=== PATIENT | female | born 1960 | race Caucasian/White ===

== ENCOUNTER 2023-02-01 17:54 | Emergency (ER) | payer OTHER ==
[~2023-02-01] VITALS: Ht 152.4 cm; Wt 106.6 kg
[2023-02-01 18:07] VITALS: BP 130/70
[2023-02-01 18:22] LABS: BASOPHILS # (AUTO) 0.1 K/uL (0.00-0.22); BASOPHILS % (AUTO) 0.5 % (0.0-2.0); EOSINOPHILS # (AUTO) 0.2 K/uL (0-0.4); EOSINOPHILS % (AUTO) 1.3 % (0.0-4.0); HEMATOCRIT 43.4 % (36-48); HEMOGLOBIN 14.7 g/dL (12.0-16.0); LYMPHOCYTES # (AUTO) 5.9 K/uL (2.5-16.5); LYMPHOCYTES % (AUTO) 36.7 % (20.5-51.1); MEAN CORPUSCULAR HEMOGLOBIN 30 pg (27-31); MEAN CORPUSCULAR HGB CONC 34 g/dL (33-37); MEAN CORPUSCULAR VOLUME 89.5 fL (80-94); MONOCYTES # (AUTO) 0.7 K/uL (0.8-1.0); MONOCYTES % (AUTO) 4.2 % (1.7-9.3); NEUTROPHILS # (AUTO) 9.2 K/uL (1.8-7.7); NEUTROPHILS % (AUTO) 57.3 % (42.2-75.2); PLATELET COUNT (AUTO) 329 K/uL (140-450); RED BLOOD CELL COUNT(AUTO) 4.84 MIL/uL (4.20-5.40)
[2023-02-01 18:38] LABS: ALBUMIN 3.8 g/dL (3.4-5.0); ANION GAP 10.9 (8-16); ASPARTATE AMINOTRANSFERASE 25 U/L (15-37); CARBON DIOXIDE 32.3 mmol/L (21-32); CHLORIDE 100 mmol/L (98-107); CREATININE 1.1 mg/dL (0.6-1.3); GFR ARICAN-AMERICAN 65 mL/min (>90); GLUCOSE 122 mg/dL (74-106); POTASSIUM 3.2 mmol/L (3.5-5.1); SODIUM SERUM 140 mmol/L (136-145); TOTAL BILIRUBIN 0.4 mg/dL (0.0-1.0); UREA NITROGEN, BLOOD 13 mg/dL (7-18)
--- NOTE | 2023-02-01 19:03 | NUR ---
FIRST CONTACT. RECIEVED FROM JULIANE HIDALGO. PT STATES SHE TWISTED HER ANKLE THIS AM WHILE GETTING IN HER CAR. SHE CONTINUED TO HAVE SOME DIFFICULTY GETTING IN AND OUT OF HER CAR TODAY DUE TO FEAR OF "RETWISTING HER RT ANKLE, THIGH AND ENTIRE LEG. SHE WENT TO URGENT CARE AND THE DOCTOR TOLD HER TO COME TO ED TO R/O STROKE. DUE TO HER PRIOR STROKE 03/2022 PRESENTING W/ SIMILAR SYMPTOMS. CODE STROKE CALLED UPON PT ARRIVAL TO ED. JULIANE ASSUMED INITIAL CARE OF PT. PT RETURNED AFTER CT AND AMBULATED TO RESTROOM W/O RN AWARENESS OR NOTIFICATION. ADMONISHED PT TO CALL RN FOR ASSIST. PT A&O SKINS WNL. AIRWAY PATENT, RESP UNLAB AND EVEN. NO ADVENTITIOUS LUNG SOUNDS NOTED. ASSESMENT PER FLOWSHEET. COMFORT MEASURES AND SUPPORTIVE CARE INITIATED. PT AGREES WITH PLAN OF CARE. PT'S BEST FRIEND MELECIO RODGERS FOR MORAL SUPPORT.-BRISA HIDALGO
--- NOTE | 2023-02-01 19:15 | NUR ---
ASSUMED CARE OF PT AT THIS TIME. DR. FORD IS AT BEDSIDE DOING EXAM. PT UPDATED ON POC WITH FULL RETURNED VERBAL UNDERSTANDING. PT WILL BE MEDICATED AND THEN DC HOME.
--- NOTE | 2023-02-01 19:15 | NUR ---
ASSUMED CARE OF PT AT THIS TIME. DR. FORD AT BEDSIDE. PT UPDATED ON POC WITH FULL RETURNED VERBAL UNDERSTANDING. VSS. AWAITING RESULTS.
--- NOTE | 2023-02-01 19:18 | NUR ---
CONTINUED CARE ENDORSED TO CARLOS HIDALGO.
[2023-02-01] MEDS ORDERED: KETOROLAC 60 MG/2 ML VIAL IM ONE (19:20)
[2023-02-01] MEDS ORDERED: INSULIN LISPRO SLIDING SCALE 100 UNITS/ML VIAL SUBQ PRN (20:00)
[2023-02-01] MEDS ORDERED: IBUP-2213 PO (20:14)
[2023-02-01 20:48] VITALS: BP 125/77
== END 2023-02-01 20:48 | disposition home or self-care (01) ==
LOC: MED 17:54
DX: M79.651 Pain in right thigh (principal); E11.9 Type 2 diabetes mellitus without complications; Z86.73 Personal history of transient ischemic attack (TIA), and cerebral infarction without residual deficits; Z98.890 Other specified postprocedural states
CPT/HCPCS: 36415; 70450; 70496; 70498; 71045; 80053; 84484; 85025; 93005; 96372; 99285; J1885; Q9967